=== PATIENT | male | born 1985 | race African-American/Black ===

== ENCOUNTER 2017-10-28 19:05 | Emergency (ER) | payer MEDICAID ==
[2017-10-28 19:11] VITALS: BMI 32.2
[2017-10-28] MEDS ORDERED: CATAPRES TAB 0.2 MG PO ONE (20:33)
[2017-10-28] MEDS ORDERED: TORADOL TAB PO ONE ×2 (20:35→20:56)
--- NOTE | 2017-10-28 20:51 | DR.GENAD ---
HPI - PCP Primary Care Physician: NFD - Complaint/Symptoms Chief Complaint Doctors Comments: pt also c/o 2-3 days off and on chest pain Chief Complaint:: HEADACHE - Source History Provided: Patient - Mode of Arrival Mode of Arrival: Ambulatory - Timing Onset of Chief Complaint: 10/28/17 PMH - PMH Past Medical History: Yes Past Medical History: Hypertension Past Medical History Comment: quit taking his BP meds a while ago, can't recall name Past Surgical History: No - Family History History of Family Medical Conditions: Yes Family Medical History: Diabetes Mellitus, Hypertension - Social History Does patient currently use any type of tobacco product: Yes Have you used tobacco products in the last 12 months: Yes Type of Tobacco Use: Cigarettes Alcohol Use: Occasionally Do you use any recreational Drugs:: No Lives With: Family Lives Where: Home - infectious screening In the last 2 months have you had wt loss of >10#?: NO Have you had fever, night sweats or hemotysis?: No Have you traveled outside the country in the last 6 months?: No Isolation: Standard ROS - Review of Systems Constitutional: No Symptoms Reported Eyes: No Symptoms Reported ENTM: No Symptoms Reported Respiratoy: No Symptoms Reported Cardiovascular: Chest Pain Genitourinary: No Symptoms Reported Neurological: Headache Musculoskeletal: No Symptoms Reported Integumentary: No Symptoms Reported Hematologic/Lymphatic: No Symptoms Reported Endocrine: No Symptoms Reported Psychiatric: No Symptoms Reported All Other Systems: Reviewed and Negative PE - Vital Signs Vitals: Temperature 99.1 F Pulse Rate 84 Respiratory Rate 18 Blood Pressure 169/92 O2 Sat by Pulse Oximetry 100 - General Limitations: No Limitations General Appearance: Alert, In No Apparent Distress - Head Head Exam: Normal Inspection - Eyes Eye exam: Normal Appearance - ENT ENT Exam: Normal Exam - Neck Neck Exam: Normal Inspection, Full ROM, Trachea Midline - Chest Chest Inspection: Normal Inspection, Symmetric Chest Wall Rise. negative: Tenderness - Respiratory Respiratory Exam: Normal Lung Sounds Bilat Respiratory Exam: Bilateral Clear to Auscultation - Cardiovascular Cardiovascular Exam: Regular Rate, Normal Rhythm, Normal Heart Sounds. negative : Systolic Murmur, Diastolic Murmur - Abdominal Exam Abdominal Exam: Normal Inspection, Normal Bowel Sounds, Soft. negative: Tenderness - Extremities Extremities Exam: Normal Inspection, Full ROM. negative: Edema - Neurologic Neurological Exam: Alert, Oriented X3 - Psychiatric Psychiatric Exam: Normal Affect, Normal Mood - Skin Skin Exam: Warm, Dry. negative: Rash ROR - EKG Compared to prior EKG Dated: 10/28/17 (no old EKGs) Rate: 66 (normal EKG) - Diagnosis Discharge Problem: Hypertension, Headache - Discharge Plan Disposition: HOME, SELF-CARE Condition: Stable Prescriptions: Clonidine HCl [CATAPRES 0.2 MG TAB *] 0.2 mg PO BID #60 tab - Follow ups/Referrals Follow ups/Referrals: FRANCI RAYMUNDO [Primary Care Provider] - 3 days - Instructions Additional Notes - Additional Notes Additional Notes: feels better after meds, ready for d/c. SALES subsided
[2017-10-28] MEDS ORDERED: CATAPRES TAB 0.2 MG ONE (20:57)
[2017-10-28 21:59] VITALS: BP 136/89
== END 2017-10-28 22:00 | disposition home or self-care (01) ==
LOC: ER 19:22
DX: I10 Essential (primary) hypertension (principal); R51 Headache
CPT/HCPCS: 93005; 93010; 99282